=== PATIENT | female | born 1990 | race Caucasian/White ===

== ENCOUNTER 2017-10-31 04:54 | Emergency (ER) | payer OTHER ==
[~2017-10-31] VITALS: Ht 172.7 cm; Wt 143.3 kg
[2017-10-31 05:25] LABS: HEMATOCRIT 33.6 % (37.0-47.0); HEMOGLOBIN 10.9 gm/dL (12.0-15.0); MCH 27.1 pg (26.0-34.0); MCHC 32.4 g/dL (28.0-37.0); MCV 83.7 fL (80.0-100.0); PLATELET COUNT 46 thou/uL (150-400); RBC 4.01 mil/uL (4.20-5.00); RDW 16.3 % (10.5-14.5)
[2017-10-31 05:27] LABS: WBC 1.7 thou/uL (4.0-11.0)
[2017-10-31 05:31] LABS: CALCIUM 8.9 mg/dL (8.5-10.1); CREATININE 0.8 mg/dL (0.6-1.0); POTASSIUM 4.5 mmol/L (3.5-5.1)
[2017-10-31 05:39] LABS: ALBUMIN 2.8 g/dL (3.4-5.0); DIRECT BILIRUBIN 1.2 mg/dL (<0.1-0.3); TOTAL BILIRUBIN 2.9 mg/dL (<0.1-1.0); TOTAL PROTEIN 9.1 g/dL (6.4-8.2)
[2017-10-31] MEDS ORDERED: NEURONTIN 300300 M1 PO ×2 (06:36→06:43)
[2017-10-31] MEDS ORDERED: HYDROXYZINE HCL25 M1 PO (06:38)
[2017-10-31] MEDS ORDERED: PROZAC20 MG PO (06:38)
[2017-10-31] MEDS ORDERED: DOXEPIN 10 MG C10 MG PO (06:40)
[2017-10-31] MEDS ORDERED: LEVAQUIN 250 M250 MG PO (06:41)
[2017-10-31] MEDS ORDERED: CORGARD 80MG TA80 M1 PO (06:42)
[2017-10-31] MEDS ORDERED: VALACYCLOVIR500 MG PO (06:43)
[2017-10-31] MEDS ORDERED: AMARYL4 MG PO (06:44)
[2017-10-31] MEDS ORDERED: METFORMIN HCL500 MG PO (06:44)
[2017-10-31] MEDS ORDERED: PRAMIPEXOLE DIHY1 MG PO (06:45)
[2017-10-31] MEDS ORDERED: OMEPRAZOLE40 MG PO (06:46)
[2017-10-31] MEDS ORDERED: TRADJENTA5 MG (06:46)
[2017-10-31 07:01] LABS: URINE BILIRUBIN NEGATIVE (Negative); URINE BLOOD NEGATIVE (Negative); URINE CLARITY CLEAR; URINE COLOR YELLOW; URINE GLUCOSE-RANDOM* 3+ (Negative); URINE KETONES NEGATIVE (Negative); URINE LEUKOCYTES NEGATIVE (Negative); URINE NITRITE NEGATIVE (Negative); URINE PROTEIN (DIPSTICK) NEGATIVE (Negative)
[2017-10-31 07:02] LABS: ABSOLUTE NEUTROPHILS 1.2 thou/uL (1.4-8.2); ATYPICAL LYMPHS 1 %
[2017-10-31 07:03] LABS: ANISOCYTOSIS 1+; PLATELET ESTIMATE DECREASED; POIKILOCYTOSIS 1+
[2017-10-31 07:22] LABS: AMP/METHAMP Negative (Negative); BARBITURATES Negative (Negative); BENZODIAZEPINES Negative (Negative); COCAINE Negative (Negative); METHADONE Negative (Negative); OPIATES Negative (Negative); PCP Negative (Negative)
[2017-10-31 09:05] VITALS: BP 126/66
== END 2017-10-31 09:06 | disposition home or self-care (01) ==
LOC: ER 04:54
PROVIDERS: Emergency Medicine
DX: K75.81 Nonalcoholic steatohepatitis (NASH) (principal); R40.0 Somnolence; R73.9 Hyperglycemia, unspecified; F12.10 Cannabis abuse, uncomplicated; R20.2 Paresthesia of skin; R74.0 Nonspecific elevation of levels of transaminase and lactic acid dehydrogenase [LDH]

== ENCOUNTER 2018-07-08 13:43 | Emergency (ER) | payer OTHER ==
[~2018-07-08] VITALS: Ht 172.7 cm; Wt 136.1 kg
[~2018-07-08 13:43] MED LIST: AMARYL4 MG PO; CORGARD 80MG TA80 M1 PO; DOXEPIN 10 MG C10 MG PO; HYDROXYZINE HCL25 M1 PO; LEVAQUIN 250 M250 MG PO; METFORMIN HCL500 MG PO; NEURONTIN 300300 M1 PO; OMEPRAZOLE40 MG PO; PRAMIPEXOLE DIHY1 MG PO; PROZAC20 MG PO; TRADJENTA5 MG; VALACYCLOVIR500 MG PO
[2018-07-08 13:50] VITALS: BP 134/75
== END 2018-07-08 14:32 | disposition home or self-care (01) ==
LOC: ER 13:43
DX: Z71.1 Person with feared health complaint in whom no diagnosis is made (principal); E11.40 Type 2 diabetes mellitus with diabetic neuropathy, unspecified; E03.9 Hypothyroidism, unspecified; K70.30 Alcoholic cirrhosis of liver without ascites; Z88.8 Allergy status to other drugs, medicaments and biological substances